=== PATIENT | female | born 1970 | race Native Hawaiian/Other Pacific Islander ===

== ENCOUNTER 2021-10-06 13:37 | Emergency (ER) | payer SELFPAY ==
[2021-10-07] MEDS ORDERED: KETOROLAC 30 MG/1 ML INJ IV ONE (00:28)
[2021-10-07] MEDS ORDERED: SODIUM CHLORIDE 0.9% 1000 ML 1,000 ML IV ONE (00:28)
--- NOTE | 2021-10-07 01:02 | Emergency Department Report ---
ED Abdominal Pain HPI - General Chief Complaint: Abdominal Pain Stated Complaint: STOMACH PAIN Source: patient Mode of arrival: Ambulatory Limitations: Language Barrier - History of Present Illness Initial Comments: 51-year-old female presents to the ED complaining abdominal pain x1 week . Patient states that pain has been intermittent. Denies any nausea vomiting or diarrhea. Patient unable to describe the pain states is worse in the left upper quadrant. Patient history of hypertension and diabetes. Patient is alert and oriented x3. She denies any dysuria. Head Bookkeeper use. No acute distress .no ill appearance noted MD Complaint: abdominal pain Onset/Timin -: week(s) Location: diffuse Radiation: none Severity scale (0 -10): 7 Consistency: intermittent Improves With: nothing Worsens With: nothing Associated Symptoms: denies other symptoms - Related Data Previous Rx's Medication Instructions Recorded Last Taken Type Acetaminophen/Codeine [Tylenol 1 tab PO Q6H PRN 3 Days #12 tab 10/07/21 Unknown Rx /Codeine # 3 tab] Nitrofurantoin [place]/M-Cryst 100 mg PO Q12HR 10 Days #20 capsule 10/07/21 Unknown Rx [Macrobid CAP] Allergies Allergy/AdvReac Type Severity Reaction Status Date / Time No Known Allergies Allergy Unverified 10/06/21 23:22 ED Review of Systems ROS: Stated complaint: STOMACH PAIN Other details as noted in HPI Constitutional: denies: chills, fever Eyes: denies: eye pain, eye discharge, vision change ENT: denies: ear pain, throat pain Respiratory: denies: cough, shortness of breath, wheezing Cardiovascular: denies: chest pain, palpitations Endocrine: no symptoms reported Gastrointestinal: abdominal pain. denies: nausea, diarrhea Genitourinary: denies: urgency, dysuria, discharge Musculoskeletal: denies: back pain, joint swelling, arthralgia Skin: denies: rash, lesions Neurological: denies: headache, weakness, paresthesias Psychiatric: denies: anxiety, depression Hematological/Lymphatic: denies: easy bleeding, easy bruising ED Past Medical Hx - Social History Smoking Status: Unknown if ever smoked - Medications Home Medications: Home Medications Medication Instructions Recorded Confirmed Last Taken Type Acetaminophen/Codeine [Tylenol 1 tab PO Q6H PRN 3 Days #12 tab 10/07/21 Unknown Rx /Codeine # 3 tab] Nitrofurantoin [place]/M-Cryst 100 mg PO Q12HR 10 Days #20 capsule 10/07/21 Unkno wn Rx [Macrobid CAP] ED Physical Exam - General Limitations: Language Barrier General appearance: alert, in no apparent distress - Head Head exam: Present: atraumatic, normocephalic - Eye Eye exam: Present: normal appearance - ENT ENT exam: Present: mucous membranes moist - Neck Neck exam: Present: normal inspection - Respiratory Respiratory exam: Present: normal lung sounds bilaterally. Absent: respiratory distress - Cardiovascular Cardiovascular Exam: Present: regular rate, normal rhythm. Absent: systolic murmur, diastolic murmur, rubs, gallop - GI/Abdominal GI/Abdominal exam: Present: soft, tenderness, normal bowel sounds - Extremities Exam Extremities exam: Present: normal inspection - Back Exam Back exam: Present: normal inspection - Neurological Exam Neurological exam: Present: alert, oriented X3 - Psychiatric Psychiatric exam: Present: normal affect, normal mood - Skin Skin exam: Present: warm, dry, intact, normal color. Absent: rash ED Course Vital Signs 10/06/21 10/07/21 10/07/21 15:47 00:53 04:22 Temperature 98.3 F Pulse Rate 65 60 Respiratory 18 14 14 Rate Blood Pressure 126/81 Blood Pressure 141/64 [Right] O2 Sat by Pulse 99 99 Oximetry ED Medical Decision Making - Lab Data Result diagrams: 10/07/21 00:53 10/07/21 00:53 - Medical Decision Making 51-year-old female presents to the ED complaining abdominal pain x1 week . Patient states that pain has been intermittent. Denies any nausea vomiting or diarrhea. Patient unable to describe the pain states is worse in the left upper quadrant. Patient history of hypertension and diabetes. Patient is alert and oriented x3. She denies any dysuria. No acute distress noted. No ill appearance noted. Physical examination patient has tenderness to the left upper quadrant. UA show urinary tract infection with positive nitrite and leukocyte esterase . CT of the abdomen with contrast show diverticulosis but not diverticulitis. Rechecked the patient is resting quietly quietly and comfortable and feeling better. I discussed the results of diagnostic study, my clinical impression and the plan for further treatment with the patient. Patient agrees with plan and d ischarge at this present time. All question addressed. I have given the patient instruction regarding a diagnosis ,expectation ,follow- up and return precaution. I explained to the patient that emergent condition may arise and to return to the ED for new worsen and any new persisting condition. I have explained the importance of following up with the primary care physician or referral physician listed below has instructed. The patient verbalized understanding of discharge instruction. Critical care attestation.: If time is entered above; I have spent that time in minutes in the direct care of this critically ill patient, excluding procedure time. ED Disposition Clinical Impression: Diverticulosis, Acute urinary tract infection Disposition: HOME / SELF CARE / HOMELESS Is pt being admited?: No Does the pt Need Aspirin: No Condition: Stable Instructions: Antibiotic Medicine, Adult, [id number], Urinary Tract Infection, Adult, [id number], Diverticulosis, Abdominal Pain (ED) Additional Instructions: Follow-up with your PCP Eat high-fiber food Return to the ED for any worsening symptoms Drink Plenty of fluids Prescriptions: Nitrofurantoin [place]/M-Cryst [Macrobid CAP] 100 mg PO Q12HR 10 Days #20 capsule Acetaminophen/Codeine [Tylenol /Codeine # 3 tab] 1 tab PO Q6H PRN 3 Days #12 tab PRN Reason: Pain, Moderate (4-6) Referrals: PRIMARY CARE, [Primary Care Provider] - 3-5 Days [facility] [Provider Group] - 3-5 Days Print Language: TAIWANESE
[2021-10-07 01:50] LABS: Basophils # (Auto) 0.1 K/mm3 (0.0-0.1); Basophils % (Auto) 1.4 % (0.0-1.8); Eosinophils # (Auto) 0.3 K/mm3 (0.0-0.4); Eosinophils % (Auto) 3.6 % (0.0-4.3); Hematocrit 40.3 % (30.3-42.9); Hemoglobin 13.3 gm/dl (10.1-14.3); Lymphocytes # (Auto) 3.8 K/mm3 (1.2-5.4); Mean Corpuscular HGB Conc 33 % (30-34); Mean Corpuscular Volume 92 fl (79-97); Monocytes # (Auto) 0.6 K/mm3 (0.0-0.8); Monocytes % (Auto) 7.2 % (0.0-7.3); Red Cell Distribution Width 13.6 % (13.2-15.2)
[2021-10-07 02:04] LABS: Platelet Count 285 K/mm3 (140-440)
[2021-10-07 02:11] LABS: Alanine Aminotransferase 24 units/L (7-56); Albumin 4.4 g/dL (3.9-5); Blood Urea Nitrogen 13 mg/dL (7-17); Calcium 9.8 mg/dL (8.4-10.2); Hemolysis Index 44
[2021-10-07 02:20] LABS: BUN/Creatinine Ratio 33; Bilirubin,Direct < 0.2 mg/dL (0-0.2)
--- NOTE | 2021-10-07 03:03 | Cat Scan Report ---
CT ABDOMEN AND PELVIS WITH CONTRAST INDICATION / CLINICAL INFORMATION: Patient complains of L.L.Q. abdominal pain. TECHNIQUE: Axial CT images were obtained through the abdomen and pelvis after 5 cc Omnipaque [address] scans at this location are performed using CT dose reduction for ALARA by means of a utomated exposure control. COMPARISON: None available. FINDINGS: LOWER CHEST: No significant abnormality of the imaged chest. LIVER: No significant abnormality. GALLBLADDER: No significant abnormality. BILE DUCTS: No significant abnormality. SPLEEN: No significant abnormality. PANCREAS: No significant abnormality. ADRENALS: 2.6 cm left adrenal nodule heterogeneous attenuation indeterminate for adenoma. RIGHT KIDNEY / URETER: No significant abnormality. LEFT KIDNEY / URETER: No significant abnormality. STOMACH / DUODENUM / SMALL BOWEL: Small hiatal hernia. Stomach and small bowel are otherwise unremark able. COLON: Diverticulosis without acute inflammation. APPENDIX: No significant abnormality. PERITONEUM: No free air or free fluid are present within the abdomen or pelvis. LYMPH NODES: No significant adenopathy. AORTA / ARTERIES: No significant abnormality. IVC / VEINS: No significant abnormality. URINARY BLADDER: No significant abnormality. REPRODUCTIVE ORGANS: No significant abnormality. ADDITIONAL ABDOMINAL/PELVIC FINDINGS: None. SKELETAL SYSTEM: No significant abnormality. IMPRESSION: 1. Diverticulosis without evidence of diverticulitis. 2. 2.6 cm left adrenal nodule indeterminate for adenoma. Relative washout 40.7% suggests that this re presents adenoma, dedicated adrenal mass protocol CT may be useful for confirmation. Signer Name: Job Martin II, MD Signed: 10/07/2021 2:58 AM Workstation Name: [id number]
[2021-10-07 03:21] LABS: Bilirubin,Urine Negative (Negative); Color,Urine Yellow (Yellow); Protein,Urine <15 mg/dL mg/dL (Negative); Urobilinogen,Urine < 2.0 mg/dL (<2.0)
[2021-10-07 03:22] LABS: Blood,Urine Trace (Negative)
[2021-10-07 03:24] LABS: Bacteria,Urine 4+ /HPF (Negative); Mucus,Urine 1+ /HPF
[2021-10-07 03:25] LABS: WBC,Urine < 182.0 /HPF (0.0-6.0)
[2021-10-07 04:23] VITALS: BP 141/64
== END 2021-10-07 04:25 | disposition home or self-care (01) ==
LOC: ED 13:37
DX: K57.90 Diverticulosis of intestine, part unspecified, without perforation or abscess without bleeding (principal); N39.0 Urinary tract infection, site not specified
CPT/HCPCS: 36415; 74177; 80048; 80076; 81001; 82150; 83690; 85025; 96361; 96374; 99284; J1885; J7030; Q9967; Q0162